=== PATIENT | male | born 1990 | race African-American/Black ===

== ENCOUNTER 2017-12-02 18:30 | Emergency (ER) | payer SELFPAY ==
[2017-12-02 18:55] VITALS: BP 145/129
[2017-12-02] MEDS ORDERED: LIDOCAINE 2% VISCOUS SOLN 20 ML UDCUP PO ONE (19:08)
--- NOTE | 2017-12-02 19:09 | ER Document Report ---
HPI - HPI Pain Level: 5 Notes: Patient is a 26-year-old male with no significant past medical history presents to the ED complaining of left lower dental pain to #19 and 181 week. Patient states that his teeth have fractured recently causing increased pain. He has not noticed any obvious swelling or discharge. He still eating and drinking without difficulties. He is urinating normally having normal bowel movements. He is to schedule an appoint with a dentist. Denies any drug allergies. Denies any headache, fever, head injury, neck pain, URI, sore throat, chest pain , palpitations, syncope, cough, shortness of breath, wheeze, dyspnea, abdominal pain, nausea/vomiting/diarrhea, urinary retention, dysuria, hematuria, or rash. - ROS Systems Reviewed and Negative: Yes All other systems reviewed and negative Past Medical History - Social History Smoking Status: Current Every Day Smoker Family History: Reviewed & Not Pertinent - Immunizations Immunizations up to date: No Hx Diphtheria, Pertussis, Tetanus Vaccination: No Vertical Provider Document - CONSTITUTIONAL Agree With Documented VS: Yes Notes: PHYSICAL EXAMINATION: GENERAL: Well-appearing, well-nourished and in no acute distress. HEAD: Atraumatic, normocephalic. EYES: Pupils equal round and reactive to light, extraocular movements intact, sclera anicteric, conjunctiva are normal. ENT: EAC clear b/l. TM's intact b/l without erythema, fluid, or perforation. Nares patent and without discharge. oropharynx clear without exudates. No tonsilar hypertrophy or erythema. Moist mucous membranes. No sinus tenderness. Uvula midline. No palatine shift. No tongue protrusion. No respiratory compromise. Mouth: Poor dentition. + mild decay and mild gingivitis. cracked/fx teeth as well. No obvious abscess or discharge noted. No facial swelling. + tenderness to tooth #18-19. NECK: Normal range of motion, supple without lymphadenopathy. No rigidity/ meningismus. LUNGS: Breath sounds clear to auscultation bilaterally and equal. No wheezes rales or rhonchi. HEART: Regular rate and rhythm without murmurs, rubs, gallops. NEUROLOGICAL: Cranial nerves grossly intact. Normal speech, normal gait. Normal sensory, motor exams PSYCH: Normal mood, normal affect. SKIN: Warm, Dry, normal turgor, no rashes or lesions noted. - INFECTION CONTROL TRAVEL OUTSIDE OF THE [place] IN LAST 30 DAYS: No Course - Re-evaluation Re-evalutation: 12/02/17 19:07 Patient is an afebrile, well-hydrated, 26-year-old male who presents to the ED with dental pain, suspect nerve root etiology versus infection. Vitals are acceptable. PE is otherwise unremarkable. No labs or imaging warranted at this time based on H&P. I will send him home with lidocaine as well as a prescription for penicillin. Low suspicion for any meningitis, sepsis, peritonsillar/pharyngeal abscess, respiratory compromise, Hair's, temporal arteritis, or other emergent systemic condition at this time. Patient is aware this condition can change from initial presentation and he needs to monitor symptoms closely. Conservative measures otherwise for symptoms. Call to schedule an appointment with a dentist for further evaluation and management. Recheck with your PCM this week as well. Return to the ED with any worsening/ concerning symptoms otherwise as reviewed in discharge. Patient is in agreement. - Vital Signs Vital signs: Temp Pulse Resp BP Pulse Ox 99.5 F 79 145/129 H 98 12/02/17 18:54 12/02/17 18:54 12/02/17 18:54 12/02/17 18:54 Discharge - Discharge Clinical Impression: Pain, dental Condition: Stable Disposition: HOME, SELF-CARE Instructions: Toothache ([facility]), Penicillin V K ([facility]) Additional Instructions: [place] and floss twice daily Maintain fluid intake Take antibiotics as directed Mouthwash, salt water gargles, peroxide rinse as needed Tylenol/ibuprofen as needed Recheck with PCM this week Call today/tomorrow and schedule an appointment with your dentist for further evaluation Return to the ED with any worsening symptoms and/or development of fever, headache, facial swelling, swelling of lips/tongue/throat, trouble swallowing, drooling, hoarseness, neck pain/stiffness, chest pain, palpitations, syncope, shortness of breath, trouble breathing, abdominal pain, n/v/d, numbness/tingling , or other worsening symptoms that are concerning to you. Prescriptions: Penicillin V Potassium [Penicillin Vk 250 mg Tablet] 500 mg PO BID #40 tablet Forms: Elevated Blood Pressure, Smoking Cessation Education Referrals: [facility] [Provider Group] - Follow up in 1 week
== END 2017-12-02 19:16 | disposition home or self-care (01) ==
LOC: ER 18:30
DX: K08.9 Disorder of teeth and supporting structures, unspecified (principal); F17.200 Nicotine dependence, unspecified, uncomplicated
CPT/HCPCS: 99282; J3490

== ENCOUNTER 2019-05-01 11:56 | Emergency (ER) | payer MEDICAID ==
--- NOTE | 2019-05-01 12:22 | ER Document Report ---
HPI - HPI Time Seen by Provider: 05/01/19 12:09 Pain Level: 4 Notes: Patient is a 28-year-old male with no significant past medical history who presents complaining of right proximal thigh/inguinal pain is been present for the past week. Patient states the pain is been relatively constant. Movements make the pain worse. He has not noticed any lumps or bumps in the area. He has not had any testicular, scrotal, or penile pain. He is able to ambulate, but is limping. 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 He is able to eat and drink without difficulty. He is urinating normally and having normal bowel movements. The pain does not radiate. Patient does admit to smoking. Denies any prolonged immobilization, distance travel, recent surgery/trauma, personal cancer history, hormone use, or previous DVT/PE. Denies any headache, fever, URI, sore throat, chest pain, palpitations, syncope, cough, shortness of breath, wheeze, dyspnea, abdominal pain, nausea/vomiting/diarrhea, urinary retention, dysuria, hematuria, loss of control of bowel or bladder, numbness/tingling, saddle anesthesia, muscle paralysis/weakness, or rash. - ROS Systems Reviewed and Negative: Yes All other systems reviewed and negative Past Medical History - Social History Smoking Status: Current Every Day Smoker Family History: Reviewed & Not Pertinent Renal/ Medical History: Denies: Hx Peritoneal Dialysis - Immunizations Immunizations up to date: No Hx Diphtheria, Pertussis, Tetanus Vaccination: No Vertical Provider Document - CONSTITUTIONAL Agree With Documented VS: Yes Notes: PHYSICAL EXAMINATION: GENERAL: Well-appearing, well-nourished and in no acute distress. LUNGS: Breath sounds clear to auscultation bilaterally and equal. No wheezes rales or rhonchi. HEART: Regular rate and rhythm without murmurs, rubs, gallops. ABDOMEN: Soft, nontender, nondistended abdomen. No guarding, no rebound. No masses appreciated. Normal bowel sounds present. No CVA tenderness bilaterally. No pulsatile mass : No urethral discharge. No rash, lesion, erythema, warmth, or swelling noted. No lymphadenopathy or obvious hernia noted. Non-tender to palp throughout. Musculoskeletal: Rt hip/LE: + reproducible tenderness rt hip flexors to palp in the inguinal area. Pain elicited most with resisted hip flexion. No bony tenderness. N/V intact distal. No LE asymmetry. Jayla neg b/l. FROM. Back: FROM to passive/active. Strength 5+/5. No vertebral point tenderness, stepoffs, or deformities. No other bony tenderness, erythema, swelling, or ecchymosis. SLR negative b/l. No SI jt tenderness. No foot drop Extremities: No cyanosis, clubbing, or edema b/l. Peripheral pulses 2+. C apillary refill less than 2 seconds. NEUROLOGICAL: Normal speech, limping gait. Normal sensory, motor exams. Reflexes 2+ b/l. PSYCH: Normal mood, normal affect. SKIN: Warm, Dry, normal turgor, no rashes or lesions noted. - INFECTION CONTROL TRAVEL OUTSIDE OF THE [place] IN LAST 30 DAYS: No Course - Re-evaluation Re-evalutation: 05/01/19 Patient is an afebrile, well-hydrated, 28-year-old male who presents to the ED with Rt proximal thigh/hip pain which I suspect to be a sprain versus strain of the hip flexors. Vitals are acceptable without any significant tachycardia, tachypnea, or hypoxia. PE is otherwise unremarkable for any neurovascular compromise, obvious tendon/ligament rupture, obvious fracture/dislocation, septic joint, hernia, infection/cellulitis. Venous doppler was unremarkable for any acute pathology. Toradol given IM. Patient is nontoxic-appearing. Patient is able to ambulate and weight-bear although he is limping. No other labs or imaging warranted at this time based on H&P. Conservative measures otherwise for symptoms. Recheck with your PCM in 3-5 days. Consider consult orthopedics. Return to the ED with any worsening/concerning symptoms otherwise as reviewed in discharge. Patient is in agreement. - Vital Signs Vital signs: Temp Pulse Resp BP Pulse Ox 98.7 F 76 16 138/79 H 100 05/01/19 12:09 05/01/19 12:09 05/01/19 12:09 05/01/19 12:05/01/19 12:09 Discharge - Discharge Clinical Impression: Strain of flexor muscle of right hip Qualifiers: Encounter type: initial encounter Qualified Code(s): S76.011A - Strain of muscle, fascia and tendon of right hip, initial encounter Condition: Stable Disposition: HOME, SELF-CARE Additional Instructions: Rest, Ice, Compression, Elevation Tylenol/ibuprofen as needed Light stretches daily Strength exercises as able Moist heat and massage may help F/u with your PCP in 3-5 days for a recheck Consider consult(s) with Orthopedics/physical therapy for ongoing/worsening symptoms Return to the ED with any worsening symptoms and/or development of fever, headache, chest pain, palpitations, syncope, shortness of breath, trouble breathing, abdominal pain, n/v/d, muscle weakness/paralysis, numbness/tingling, swelling, redness, or other worsening symptoms that are concerning to you. Prescriptions: Methocarbamol [Robaxin 750 mg Tablet] 750 mg PO TID PRN #12 tablet PRN Reason: Naproxen 500 mg PO BID #14 tablet Forms: Elevated Blood Pressure, Smoking Cessation Education, Return to Work Referrals: [facility] [Provider Group] - Follow up as needed
--- NOTE | 2019-05-01 13:12 | RADIOLOGY REPORT (SQ) ---
EXAM DESCRIPTION: HIP RIGHT AP/LATERAL COMPLETED DATE/TIME: 05/01/2019 12:54 pm REASON FOR STUDY: Rt prox thigh pain COMPARISON: None. NUMBER OF VIEWS: Two views. TECHNIQUE: AP and frog-leg view of the right hip. LIMITATIONS: None. FINDINGS: MINERALIZATION: Normal. RIGHT HIP: No fracture or dislocation. No worrisome bone lesions. No contour deformity. No joint sp rosa narrowing. OPPOSITE HIP: No fracture or dislocation. No worrisome bone lesions. SOFT TISSUES: No findings. OTHER: No other significant finding. IMPRESSION: NEGATIVE STUDY OF THE RIGHT HIP. NO EXPLANATION FOR PAIN. TECHNICAL DOCUMENTATION: JOB ID: [id number] [employer]- All Rights Reserved Reading location - IP/workstation name: [email or web address]
[2019-05-01 14:18] VITALS: BP 136/88
--- NOTE | 2019-05-01 14:58 | RADIOLOGY REPORT (SQ) ---
EXAM DESCRIPTION: VENOUS UNILATERAL LOWER COMPLETED DATE/TIME: 05/01/2019 2:44 pm REASON FOR STUDY: Rt prox medial leg pain COMPARISON: None. TECHNIQUE: Dynamic and static george scale and color images acquired of the right leg venous system. S elected spectral images acquired with additional compression and augmentation maneuvers. The contrala teral common femoral vein and saphenofemoral junction were also imaged. Images stored on PACS. LIMITATIONS: None. FINDINGS: COMMON FEMORAL: Normal phasicity, compression and augmentation. No visualized echogenic ma terial on george scale. No defects on color images. FEMORAL: Normal compression and augmentation. No visualized echogenic material on george scale. No defe cts on color images. POPLITEAL: Normal compression, augmentation. No visualized echogenic material on george scale. No defec ts on color images. CALF VESSELS: Normal compression, augmentation. No visualized echogenic material on george scale. No de fects on color images. GSV and SSV: Normal compression, augmentation. No visualized echogenic material on george scale. No def ects on color images. ANY DEEP VENOUS INSUFFICIENCY: Not evaluated. ANY EVIDENCE OF POPLITEAL CYST: No. OTHER: No other significant finding. CONTRALATERAL COMMON FEMORAL VEIN AND SAPHENOFEMORAL JUNCTION: Normal phasicity, compression and augmentation. No visualized echogenic material on george scale. No de fects on color images. IMPRESSION: Negative examination for deep venous thrombosis in the right lower extremity. TECHNICAL DOCUMENTATION: JOB ID: [id number] [employer]- All Rights Reserved Reading location - IP/workstation name: [email or web address]
== END 2019-05-01 14:19 | disposition home or self-care (01) ==
LOC: ER 11:56
DX: S76.011A Strain of muscle, fascia and tendon of right hip, initial encounter (principal); X58.XXXA Exposure to other specified factors, initial encounter; M79.651 Pain in right thigh; M25.551 Pain in right hip; F17.200 Nicotine dependence, unspecified, uncomplicated
CPT/HCPCS: 93971; 99284

== ENCOUNTER 2020-07-19 20:16 | Emergency (ER) | payer SELFPAY ==
[2020-07-19 20:38] VITALS: BP 113/87
--- NOTE | 2020-07-19 20:56 | ER Document Report ---
HPI - HPI Time Seen by Provider: 07/19/20 20:29 Notes: 29-year-old male patient presenting to the emergency department concern for possible hemorrhoid. Patient reports about 3 days ago he had a tender swollen area near the rectum. He believes it is a hemorrhoid. He has never had a hemorrhoid before. He did report some blood in the toilet, he states it was a few drops after having a hard bowel movement. He denies any other symptoms to include fever, chills, nausea, vomiting or diarrhea. - ROS Systems Reviewed and Negative: Yes All other systems reviewed and negative - DERM Notes: rectal pain Past Medical History - General Information source: Patient - Social History Smoking Status: Never Smoker Frequency of alcohol use: None Drug Abuse: None Family History: Reviewed & Not Pertinent - Medical History Medical History: Negative Renal/ Medical History: Denies: Hx Peritoneal Dialysis Surgical Hx: Negative - Immunizations Immunizations up to date: No Hx Diphtheria, Pertussis, Tetanus Vaccination: No Vertical Provider Document - CONSTITUTIONAL Notes: PHYSICAL EXAMINATION: GENERAL: Well-appearing, well-nourished and in no acute distress. HEAD: Atraumatic, normocephalic. EYES: Pupils equal round extraocular movements intact, conjunctiva are normal. ENT: Nares patent NECK: Normal range of motion LUNGS: No respiratory distress Musculoskeletal: Normal range of motion Rectum: External hemorrhoid noted, measures approximately 1 cm in diameter. NEUROLOGICAL: Normal speech, normal gait. PSYCH: Normal mood, normal affect. SKIN: Warm, Dry, normal turgor, no rashes or lesions noted. - INFECTION CONTROL TRAVEL OUTSIDE OF THE [place] IN LAST 30 DAYS: No Course - Re-evaluation Re-evalutation: Visible external hemorrhoid noted on exam. Chaperoned by nursing staff. - Vital Signs Vital signs: Temp Pulse Resp BP Pulse Ox 99.2 F 76 13 113/87 H 97 07/19/20 20:36 07/19/20 20:36 07/19/20 20:36 07/19/20 20:36 07/19/20 20:36 Discharge - Discharge Clinical Impression: Bleeding hemorrhoid Condition: Stable Disposition: HOME, SELF-CARE Additional Instructions: Hemorrhoids You have hemorrhoids. These are formed by enlargement of veins around the anus. The cause is increased pressure in the veins, from or straining at bowel movements. Hemorrhoids often cause itching and bleeding with bowel movements. When a hemorrhoid becomes clotted, severe pain and swelling result. Soothing creams and suppositories are often prescribed. Warm sitz-baths may also decrease pain, swelling, and itching. Eat a high-fiber diet. Stool softeners such as Metamucil will help. Keep the area very clean. Medicated cleansing pads (such as Tucks) are useful after bowel movements. A hose-mounted shower unit (like a shower massager at low water pressure) can be used to clean around tender hemorrhoid tags. You should call the doctor or return if you develop fever, increasing pain, or an enlarging mass around the anus, or if you simply fail to improve with treatment. Prescriptions: Phenylephrine HCl [Anusol Suppository] 1 supp.rect [place] BID #28 supp.rect
== END 2020-07-19 21:15 | disposition home or self-care (01) ==
LOC: ER 20:16
DX: K64.4 Residual hemorrhoidal skin tags (principal)
CPT/HCPCS: 99283